=== PATIENT | male | born 2000 | race Caucasian/White ===

== ENCOUNTER 2020-04-14 03:43 | Emergency (ER) | payer OTHER ==
[~2020-04-14] VITALS: Ht 185.4 cm; Wt 86.2 kg
[~2020-04-14 03:43] MED LIST: ALBU.083IS IH; ALBU3IS INH; ALBU90OI61 INH; AZIT250 PO; PRED20 PO
[2020-04-14] MEDS ORDERED: FLUT.05NI (04:09)
== END 2020-04-14 05:23 | disposition home or self-care (01) ==
LOC: ER 03:43
DX: T40.7X1A Poisoning by cannabis (derivatives), accidental (unintentional), initial encounter (principal); T51.91XA Toxic effect of unspecified alcohol, accidental (unintentional), initial encounter; F41.9 Anxiety disorder, unspecified; J45.909 Unspecified asthma, uncomplicated; Z88.0 Allergy status to penicillin; Z79.899 Other long term (current) drug therapy
CPT/HCPCS: 36415; 93005; 93010; 96361; 96374; 99284-25; J2060; J7030